=== PATIENT | male | born 1945 | race African-American/Black ===

== ENCOUNTER → 2020-07-03 | Outpatient (CLI) | payer OTHER ==
[~2020-07-03] MED LIST: AMBIEN 10 MG TA10 MG PO; AMLODIPINE BESY10 MG PO; ATIVAN1 MG PO; CELECOXIB200 MG PO; CENTRUM SILVER1 EAC2 PO; CRESTOR5 MG PO; GERITOL COMPLE1 EAC2 PO; IBUPROFEN 800800 M1 PO; KLOR-CON 10 ER10 MEQ PO; LORAZEPAM 1 MG T1 MG PO; NORVASC10 MG PO; PROCHLORPERAZIN10 MG PO; ROSUVASTATIN CA10 MG PO; SILODOSIN8 MG PO; SINGULAIR 10 MG10 M1 PO; VITAMIN C500 M2 PO; VITAMIN D325 MC3 PO
== END ==
LOC: LAB 12:19
PROVIDERS: ATTEND Surgery
DX: Z01.812 Encounter for preprocedural laboratory examination (principal); Z20.822 Contact with and (suspected) exposure to COVID-19

== ENCOUNTER → 2020-07-06 | Outpatient (CLI) | payer OTHER | LOC: SJCVCIMAG 06:45 → SJCVC 16:07 | PROVIDERS: ATTEND Internal Medicine Cardiovascular Disease | DX: I07.1 Rheumatic tricuspid insufficiency (principal); I11.9 Hypertensive heart disease without heart failure; R94.31 Abnormal electrocardiogram [ECG] [EKG] ==

== ENCOUNTER → 2020-07-14 | Outpatient (CLI) | payer OTHER ==
[~2020-07-14] MED LIST changes: +FLOMAX0.4 MG PO; +HYDROCODON-ACE1 EAC7 PO; +SINGULAIR 10 MG10 MG PO
== END ==
LOC: SJCVCIMAG 08:57
PROVIDERS: ATTEND Internal Medicine Cardiovascular Disease
DX: I45.2 Bifascicular block (principal); I49.3 Ventricular premature depolarization; R94.31 Abnormal electrocardiogram [ECG] [EKG]; Z79.899 Other long term (current) drug therapy

== ENCOUNTER → 2020-07-17 | Outpatient (CLI) | payer OTHER | LOC: LAB 12:37 | PROVIDERS: ATTEND Surgery | DX: Z01.812 Encounter for preprocedural laboratory examination (principal); Z20.822 Contact with and (suspected) exposure to COVID-19 ==

== ENCOUNTER 2020-07-18 06:04 | Day surgery (SDC) | payer OTHER ==
[~2020-07-18] VITALS: Ht 177.8 cm; Wt 81.2 kg
--- NOTE | ~2020-07-18 | O ---
[facility] [place] [address] OPERATIVE REPORT Name: RAJAT PRATT Room #: DEP [facility]..#: [id number] Admission: 07/18/20 Attend Phys: Attila Stallings MD Discharge: 07/18/20 Date of : 45 Report #: [id number] THIS REPORT FOR: cc: Zan Beltran Alan Z. DO Chu, Peter Y. MD ~ DOC #: [id number] Attila Stallings MD DATE OF SERVICE: 07/18/2020 PREOPERATIVE DIAGNOSES: Bilateral inguinal hernia, right greater than the left and umbilical hernia. POSTOPERATIVE DIAGNOSES: Bilateral inguinal hernia, direct in nature and umbilical hernia. PROCEDURES PERFORMED: 1. Laparoscopic properitoneal repair of bilateral inguinal hernia with 3DMax lightweight mesh, large size. 2. Repair umbilical hernia with small Ventralex patch. SURGEON: Attila Stallings MD ANESTHESIA: General. COMPLICATIONS: None. BLOOD LOSS: 5 mL DESCRIPTION OF PROCEDURE: With the patient under general anesthesia, IV antibiotic was administered. Abdomen prepped and draped in sterile fashion. Dodson catheter was placed preoperatively. Timeout was performed. A 0.25% Marcaine was used to anesthetize the skin and subcutaneous tissue infraumbilically. A transverse incision was made on the right side of the umbilicus and then a curvilinear fashion into the umbilicus. Subcutaneous tissue was dissected free. The anterior rectus sheath on the right side was dissected free. Incision was made in the anterior fascia. The muscle was identified. The muscle was spread apart along the length of its fiber. The space between the muscle and the posterior fascia was bluntly dissected with fingertip. Balloon trocar was placed through the space. CO2 was placed. Under visualization, a 5 mm trocar was placed about 2 inches below the umbilicus. Using cautery and blunt dissection, the properitoneal space was opened up. The Jordi's ligament, pubic bone were isolated. The patient had a direct defect with fat sticking through the abdominal wall just medial to the inferior epigastric artery. The abdominal wall laterally was dissected free without difficulty. A second 5 mm trocar was placed here. On the right side, the [facility] [address] [address] OPERATIVE REPORT Name: RAJAT PRATT Room #: DEP [facility].#: [id number] Admission: 07/18/20 Attend Phys: Attila Stallings MD Discharge: 07/18/20 Date of : 45 Report #: [id number] herniated fat was from the attenuated wall. After this was performed, the direct defect was visualized. The defect is about 2.5 cm in circular and then the hernia protruded outward quite a bit. The dissection over the right cord structure did not show any indirect component. The direct defect looked like it did contain peritoneum sac. This was reduced. This was followed over the cord structure and free from the cord. No direct defect is seen. On the left side, dissection was carried out showing a smaller direct defect. The weak collins are more of a triangular shape. Lateral dissection was performed. Peritoneal reflection was identified. There was no indirect sac. Peritoneum was free from the cord. After this was performed, a large left-sided 3DMax lightweight mesh was placed. This was seated and then appropriately opened up. This was tacked to the abdominal wall lateral to the inferior epigastric artery. This was then tacked inferomedially to the Jordi's ligament over the pubic bone. Superomedially, it was tacked with SorbaFix into the rectus muscle. A right-sided large 3DMax lightweight mesh was then placed on the right side. There was overlap between the mesh. The mesh again was positioned and then held with the SorbaFix Tacker. Lateral to the inferior epigastric vessel, the mesh was tacked to the wall. Inferomedially tacked to Jordi's ligament. This covered the direct defect well superomedially to the rectus muscle. Mesh seated well. No bleeding was identified. CO2 was evacuated. Most of the air that did go through a smaller gap in the peritoneum was able to be evacuated. The trocars were removed. The properitoneal space was noted to collapse. The dissection was carried underneath the umbilicus. There was herniated fat that was identified in the umbilicus. The fat was free from the overlying skin. The fascial edges were cleaned up. The fat was reduced. Some of the CO2 in the abdomen was released through this. The fascial edges were cleaned off. The fascial defect was over a centimeter, wall was thin. Properitoneal dissection was performed here freeing the properitoneal space. After the properitoneal space was opened bluntly and also cautery, a small Ventralex patch was placed in the properitoneal space. The Ventralex patch was noted to open up well. The fascial edges were then reapproximated with 0 PDS in a horizontal mattress fashion incorporating the strap of the Ventralex patch. The strap was then cut at the fascia level. The initial incision through the anterior fascia was closed with 0 PDS [id number] x2. Skin was irrigated. The skin of the umbilicus was sewn down to the fascia level with 5-0 Vicryl. The skin incision was closed with 5-0 Vicryl in interrupted fashion. The 5 mm trocar sites were closed with 5-0 PDS also. Steri-Strips were applied. A Band-Aid was used for the 5 mm trocar site. A 4 x 4 and OpSite was placed at the umbilicus. The patient tolerated the procedure well. Dodson catheter was removed. The patient was taken to recovery room. Dodson catheter was noted to have some blood on the tip. This was discussed with his . The patient was taken to recovery room after waking up. He tolerated the procedure well. Attila Stallings MD [facility] [address] [address] OPERATIVE REPORT Name: RAJAT PRATT Room #: DEP [facility].#: [id number] Admission: 07/18/20 Attend Phys: Attila Stallings MD Discharge: 07/18/20 Date of : 45 Report #: [id number] By: 30 52 Attila Stallings MD /nt
[~2020-07-18 06:04] MED LIST changes: -FLOMAX0.4 MG PO; -HYDROCODON-ACE1 EAC7 PO
[2020-07-18 06:59] VITALS: BP 174/87
[2020-07-18] MEDS ORDERED: HYDROCODON-ACE1 EAC7 PO (09:38)
[2020-07-18] MEDS ORDERED: FLOMAX0.4 MG PO (09:39)
[2020-07-18 10:16] VITALS: BP 174/87
== END 2020-07-18 10:16 | disposition home or self-care (01) ==
LOC: OR 06:04 → TBA 06:04 → OR 10:15
PROVIDERS: ATTEND Surgery
DX: K40.20 Bilateral inguinal hernia, without obstruction or gangrene, not specified as recurrent (principal); K42.9 Umbilical hernia without obstruction or gangrene; I10 Essential (primary) hypertension; E78.00 Pure hypercholesterolemia, unspecified; F17.210 Nicotine dependence, cigarettes, uncomplicated; F41.9 Anxiety disorder, unspecified; N40.0 Benign prostatic hyperplasia without lower urinary tract symptoms; Z98.890 Other specified postprocedural states; Z79.899 Other long term (current) drug therapy; Z85.6 Personal history of leukemia; Z96.641 Presence of right artificial hip joint; Z88.0 Allergy status to penicillin; Z88.8 Allergy status to other drugs, medicaments and biological substances
CPT/HCPCS: 50010; 50101; 50119; 50411; 50455; 50507; 50555; 50848; 52265; 53065; 53307; 56525; 56526; 58574; 62110; 62900; 70005

== ENCOUNTER 2020-08-07 10:06 | Emergency (ER) | payer OTHER ==
[~2020-08-07] VITALS: Ht 180.3 cm; Wt 79.4 kg
[~2020-08-07 10:06] MED LIST changes: +FLOMAX0.4 MG PO; +HYDROCODON-ACE1 EAC7 PO
[2020-08-07 11:00] LABS: ABSOLUTE NEUTROPHILS 4.2 thou/uL (1.4-8.2); BASOPHILS 1.3 % (0.0-2.0); EOSINOPHILS 6.4 % (0.0-3.0); HEMATOCRIT 41.1 % (42.0-52.0); LYMPHOCYTES 21.2 % (24.0-44.0); MCV 88.4 fL (80.0-100.0); MONOCYTES 9.1 % (1.0-8.0); PLATELET COUNT 240 thou/uL (150-400); RBC 4.65 mil/uL (4.50-6.00); RDW 14.9 % (10.5-14.5); WBC 6.7 thou/uL (4.0-11.0)
[2020-08-07 11:03] LABS: ANION GAP 6 mmol/L (7-16); BUN 15 mg/dL (7-18); CALCIUM 9.3 mg/dL (8.5-10.1); CHLORIDE 102 mmol/L (98-107); CO2 32 mmol/L (21-32); CREATININE 1.4 mg/dL (0.7-1.3); GLUCOSE 147 mg/dL (74-106); POTASSIUM 3.7 mmol/L (3.5-5.1); SODIUM 140 mmol/L (136-145)
[2020-08-07 11:13] LABS: ALBUMIN 3.8 g/dL (3.4-5.0); SGOT 18 U/L (15-37); SGPT 30 U/L (16-63); TOTAL BILIRUBIN 0.5 mg/dL (0.2-1.0); TOTAL PROTEIN 7.9 g/dL (6.4-8.2); TROPONIN-I <0.06 ng/mL (<0.06)
[2020-08-07] MEDS ORDERED: AZITHROMYCIN500 MG PO (12:44)
[2020-08-07 12:55] VITALS: BP 114/85
--- NOTE | 2020-08-07 17:32 | EKG ---
[address] [facility] [place] [address] ELECTROCARDIOGRAM REPORT Name: RAJAT PRATT Room #: DEP [facility]#: [id number] Admission: 08/07/20 Attend Phys: Discharge: 08/07/20 Date of : 45 Report #: [id number] [facility] ED Test Date: 2020-08-07 Test Time: 10:15:31 Pat Name: RAJAT PRATT Department: Room: Gender: Standards Analyst: MENDEZ : 1945 Requested By: Asif Wilson Order Number: [id number] MD: Barrera Klein Measurements Intervals [place] Rate: 73 P: 67 MS: 171 QRS: -70 QRSD: 162 T: 52 QT: 423 QTc: 467 Interpretive Statements Sinus rhythm RBBB and LAFB No previous ECG available for comparison Electronically Signed On 08-07-2020 17:32:30 CDT by Barrera Klein [email or web address] <ELECTRONICALLY SIGNED> By: Barrera Klein MD, [facility] 08/07/20 1732 1015 [id number] Barrera Klein MD, FAC /EPI
== END 2020-08-07 12:55 | disposition home or self-care (01) ==
LOC: ER 10:06
PROVIDERS: Emergency Medicine
DX: R91.8 Other nonspecific abnormal finding of lung field (principal); I10 Essential (primary) hypertension; E78.00 Pure hypercholesterolemia, unspecified; F17.210 Nicotine dependence, cigarettes, uncomplicated; Z88.0 Allergy status to penicillin; Z79.899 Other long term (current) drug therapy; Z96.651 Presence of right artificial knee joint

== ENCOUNTER → 2020-11-11 | Outpatient (CLI) | payer OTHER ==
[~2020-11-11] MED LIST changes: +AZITHROMYCIN500 MG PO
== END ==
LOC: SLEEPLAB 09:28
PROVIDERS: ATTEND Internal Medicine Critical Care Medicine
DX: Z20.822 Contact with and (suspected) exposure to COVID-19 (principal)